=== PATIENT | male | born 1960 | race Caucasian/White ===

== ENCOUNTER 2016-05-31 07:32 | Day surgery (SDC) | payer OTHER ==
[~2016-05-31 07:32] MED LIST: ALLO100T PO; APIX5TAB PO; Aspirin Chew PO; INDO50CA PO; PRAV40TA PO; PROPOFOL 200 MG/20 ML AMP IV ONE; WALKER WHEELS/F1 MIS
[2016-05-31] MEDS ORDERED: LACTATED RINGER'S 1000 ML IV SCH (08:00)
[2016-05-31] MEDS ORDERED: INSULIN HUMAN REGULAR 1,000 UNITS/10 ML VIAL SQ PRN (08:00)
[2016-05-31] MEDS ORDERED: METOPROLOL TARTRATE 25 MG TAB PO PRN (08:00)
[2016-05-31] MEDS ORDERED: SODIUM CHLORID 0.9% 500 ML IV SCH (08:00)
[2016-05-31] MEDS ORDERED: ATOR40TA16 PO (08:28)
[2016-05-31] MEDS ORDERED: ALLO300T2 PO (08:28)
--- NOTE | 2016-05-31 13:47 | EKG ---
Date Performed: 05/31/2016 Time Performed: 08:24:34 PTAGE: 56 years EKG: Sinus rhythm . Normal ECG PREVIOUS TRACING : 03/06/2016 11.55 DOCTOR: Duy Castillo Interpretating Date/Time 05/31/2016 13:44:35
--- NOTE | 2016-05-31 14:25 | ETE ---
Study Study Date:05/31/2016 STUDY CONCLUSIONS SUMMARY - Left ventricle: The cavity size was normal. Systolic function was normal. The estimated ejection fraction was in the range of 55% to 60%. Wall motion was normal; there were no regional wall motion abnormalities. - Atrial septum: No defect or patent foramen ovale was identified. Impressions: No cardiac source of emboli was indentified. If LV function is below 40, please consider prescribing an ACEI or ARB or document rationale for non-use. PROCEDURE DATA Consent: The risks, benefits, and alternatives to the procedure were explained to the patient and informed consent was obtained. Procedure: Initial setup. The patient was brought to the laboratory in the fasting state. Intravenous access was obtained. Surface ECG leads and pulse oximetric signals were monitored. Sedation. Conscious sedation was administered by cardiology staff. Transesophageal echocardiography. Topical anesthesia was obtained using viscous lidocaine. A transesophageal probe was inserted by the attending skirt trimmer. Image quality was good. Study completion: All IVs inserted during the procedure were removed. The patient tolerated the procedure well. There were no complications. Transesophageal echocardiography. 2D, complete spectral Doppler, and color Doppler. CARDIAC ANATOMY LEFT VENTRICLE: The cavity size was normal. Systolic function was normal. The estimated ejection fraction was in the range of 55% to 60%. Wall motion was normal; there were no regional wall motion abnormalities. AORTIC VALVE: Structurally normal valve. Trileaflet; normal thickness leaflets. Doppler: There was no stenosis. No significant regurgitation. AORTA: The aorta was normal, not dilated, non-calcified, and non-diseased. MITRAL VALVE: Structurally normal valve. Normal thickness leaflets, . No evidence of vegetation. Doppler: There was no evidence for stenosis. Trace regurgitation. LEFT ATRIUM: The atrium was normal in size. No spontaneous echo contrast was observed. The appendage was morphologically a left appendage and of normal size. ATRIAL SEPTUM: No defect or patent foramen ovale was identified. There was no atrial level shunt. There was no aneurysm. RIGHT VENTRICLE: The cavity size was normal. PULMONIC VALVE: Not well visualized. Doppler: There was no evidence for stenosis. No significant regurgitation. TRICUSPID VALVE: Structurally normal valve. Normal thickness leaflets. Doppler: There was no evidence for stenosis. Trace regurgitation. PERICARDIUM: There was no pericardial effusion. Prepared and signed by Walt Terry [id number]
== END 2016-05-31 10:55 | disposition home or self-care (01) ==
LOC: HDOC 07:32 → HDIC 07:33 → HDOC 10:55
PROVIDERS: ATTEND Nuclear Medicine Nuclear Cardiology
DX: I63.441 Cerebral infarction due to embolism of right cerebellar artery (principal); Z01.810 Encounter for preprocedural cardiovascular examination; Z79.899 Other long term (current) drug therapy; Z79.01 Long term (current) use of anticoagulants
CPT/HCPCS: 93005; 93312; 93320; 93325; J7040